=== PATIENT | female | born 1965 | race Caucasian/White ===

== ENCOUNTER → 2024-10-30 19:39 | Emergency (ER) | payer BC, SELFPAY ==
[2024-10-30 19:42] VITALS: BP 146/94
[2024-10-30 20:34] LABS: Hematocrit 39.2 % (37.0-47.0); Hemoglobin 13.5 g/dL (12.0-16.0); Mean Corp Hgb Conc. 34.4 g/dL (33.0-37.0); Mean Corpuscular Volume 87.1 fL (81.0-99.0); Nucleated Red Blood Cells % 0 %; Platelet Count 304 10^3/uL (130-400); Red Cell Dist. Width 13.9 % (11.5-14.5)
[2024-10-30 20:38] VITALS: BMI 33.5
[2024-10-30 20:55] LABS: ALT (SGPT) 26 U/L (0-35); AST (SGOT) 28 U/L (14-36); Albumin 4.4 g/dl (3.5-5.0); Alkaline Phosphatase 118 U/L (38-126); Blood Urea Nitrogen 10 mg/dl (7-17); Calcium 9.0 mg/dl (8.4-10.2); Carbon Dioxide 27 mmol/L (22-30); Chloride 104 mmol/L (98-107); Estimated Creatinine Clearance 103 ml/min; Glucose 120 mg/dl (70-99); Potassium 3.8 mmol/L (3.5-5.1); Sodium 137 mmol/L (135-145); Total Protein 7.8 g/dl (6.3-8.2); eGFR > 60.00
[2024-10-30 21:05] VITALS: BP 133/73
[2024-10-30 21:07] LABS: Troponin I < 0.012 ng/ml
[2024-10-30] MEDS: ANTIVERT 50 MG PO (21:24)
[2024-10-30 21:41] LABS: COVID-19 Antigen Negative (Negative)
[2024-10-30 21:45] VITALS: BP 134/70
[2024-10-30 21:47] VITALS: BP 134/70
[2024-10-30 22:00] VITALS: BP 131/82
[2024-10-30] MEDS: ZITHROMAX 500 MG PO (23:34)
--- NOTE | 2024-10-31 00:30 | ED.GENMED ---
History of Present Illness
General
Chief Complaint: Breathing Problem
Source: patient
Exam Limitations: none
Time Seen by Provider: 10/30/24 20:40
Nursing documentation reviewed up to this point in time: agreed with
History of Present Illness
History of Present Illness:
Note:
CHIEF COMPLAINT(S)
Shortness of breath.
HISTORY OF PRESENT ILLNESS
The patient is a 59-year-old female with pmh of chronic sinusitis, benign vertigo, presenting to the emergency department with a chief complaint of shortness of breath and coughing. The patient reports that she began experiencing congestion on
and increased her allergy medication regimen, including taking pseudoephedrine. Her shortness of breath worsened significantly at approximately 5 a.m. today. She describes a cough, which produces phlegm, but denies any hemoptysis. A
breathing treatment was initiated at urgent care, which provided some relief, though it was not completed due to an electrocardiogram (EKG) being performed. The patient denies fever, chest pain, and recent long-distance travel. She reports sporadic
leg swelling related to humidity but denies redness or significant swelling consistent with deep vein thrombosis. The patient mentions a history of occasional shortness of breath when exercising, particularly in humid or cold weather, which she
attributes to the sensation of a tightening in her chest. She has an old inhaler which she has used infrequently for this. The patient describes her current chest discomfort over the past few days described as a raw feeling localized to the anterior
chest, exacerbated by deep inspiration but not radiating, and primarily occurring after coughing fits. The patient reports similar episodes in the past which resolved without intervention, usually managed with an inhaler.
ADDITIONAL HISTORY OBTAINED FROM SOURCES OTHER THAN THE PATIENT
The patients recently had a cold and similar symptoms
CHRONIC MEDICAL CONDITIONS SIGNIFICANTLY AFFECTING CARE
The patient will experience chronic nasal congestion and has a history of sinus surgery.
SOCIAL DETERMINANTS AFFECTING HEALTH
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
REVIEW OF SYSTEMS
- Respiratory: Shortness of breath, productive cough with phlegm, nasal congestion.
- Cardiovascular: No chest pain or palpitations.
- Musculoskeletal: Sporadic leg swelling (humidity-related).
- General: No fever or recent long-distance travel.
PHYSICAL EXAM
Nursing notes reviewed and vital signs reviewed.
General: Patient is well appearing and in no acute distress; non-toxic
Skin: Warm and dry, no rashes or lesions
Head: Normocephalic, atraumatic
Eyes: Sclera non-icteric. EOMs intact.
Mouth: Mild pharyngeal erythema noted, no post nasal drip, uvula midline
Cardiac: Tachycardia noted otherwsie regular rhythm, no murmurs
Peripheral Vascular: No lower extremity swelling or edema
Pulm: Increased respiratory rate otherwise respiratory effort, no wheezing, rales, or rhonchi
Neuro: CN II-XII intact, no focal neurologic deficits.
Psychiatric: Appropriate mood and affect.
PLAN
1. Initiate a computed tomography (CT) scan of the chest to evaluate for pulmonary embolism, bronchitis, and early pneumonia.
2. Continue respiratory treatments in the emergency department if tachycardia resolves.
3. Administer intravenous fluids.
4. Consider a course of corticosteroids if bronchitis is confirmed.
5. Consider discontinuing D-dimer testing due to anticipated CT scan results.
DIFFERENTIAL DIAGNOSIS
The Differential Diagnosis includes, in no particular order and is not limited to:
1. Acute bronchitis
2. Pulmonary embolism
3. Pneumonia
4. Asthma exacerbation
5. Chronic obstructive pulmonary disease (COPD) exacerbation
6. Allergic rhinitis-related cough
7. Sinusitis
8. Congestive heart failure
9. Interstitial lung disease
10. Gastroesophageal reflux disease (GERD) related cough
CHART REVIEW
-No prior ER physician documentation to review, no discharge summary
My independent review of the CBC indicates no leukocytosis.
My independent review of the troponin is undetectable.
My independent review of the BNP is normal.
My independent interpretation of the EKG is sinus tachycardia with a rate of 111 bpm and no ischemic changes.
My independent interpretation of the chest CT is negative for pulmonary embolism but shows mild bronchial wall thickening at the lung bases, consistent with acute bronchitis.
MDM/DISPOSITION
-Complexity of Data Reviewed: Chronic conditions affecting care include chronic sinusitis. The differential diagnosis includes acute bronchitis, pulmonary embolism, pneumonia, asthma exacerbation, chronic obstructive pulmonary disease (COPD)
exacerbation, allergic rhinitis-related cough, sinusitis, congestive heart failure, interstitial lung disease, and gastroesophageal reflux disease (GERD) related cough.
-Data:
Category 1
Reviewed patients blood work: no leukocytosis; normal troponin and BNP.
Independent interpretation of chest CT scan: negative for pulmonary embolism, mild bronchial wall thickening.
Independent interpretation of EKG: sinus tachycardia with a rate of 111 bpm, no ischemic changes.
Category 2
Reviewed information from urgent care, including nebulizer treatment administered for symptom relief.
-Risk:
Prescription medication was prescribed: azithromycin for suspected acute bronchitis.
Consideration of Admission/Observation: Escalation of care including admission/observation was considered given the complexity and risk of the patients presenting complaint, exam findings, and/or their underlying comorbidities. However, ultimately I
feel the patient is safe for outpatient management with close follow-up.Given the duration of symptoms and past positive response to azithromycin, this treatment was initiated. The patient was also provided with a refill for her inhaler and advised
to follow up with her primary care provider. Reasoning: Work-up reassuring, does not reveal any acute life/organ threatening processes, patients symptoms well controlled upon reevaluation, reexamination is reassuring, vitals are stable, patient
agreeable with discharge, reliable for follow-up.
Phy Exam
Physical Exam
Physical Exam:
see hpi
Scores
Heart Failure Risk
Heart Failure Risk Score: Not Applicable
History of Stroke or TIA: No
History of intubation for respiratory distress: No
Heart rate on ED arrival >/= 110: No
SaO2 <90% on arrival on room air: No
HR >/=110 during 3min walk test (or too ill to perform test): No
ECG has acute ischemic changes: No
Urea >/=12mmol/L (BUN 33.6mg/dL): No
Serum CO2>/=35mmol/L: No
Troponin I or T elevated to PA Level (0.4mg/dL): No
NT-proBNP >/=5,000ng/L (5,000pg/ml): No
HF Risk Score: 0
Admission Status: LOW RISK 2.8% Consider discharge to home with f/u visit to PCP/[facility]
Course
Orders/Labs/Results
Orders:
Orders
10/30/24 20:11
Electrocardiogram (*1) Urgent
Reason for Study: Other
Other Reason for Exam: Respiratory Distress
Cardiac Monitoring- Treatment ONCE
EKG- Treatment ONCE
IV Insert/Care/Rem.- Treatment PRN
CR Chest - 2 Views Urgent
Comment:
Reason For Exam: respiratory distress
O2 Therapy [RESP] Urgent
Titrate/Wean O2 to maintain O2 sat greater than (%): 93
Special Instructions: TO MAINTAIN CONTINUOUS O2 SATS >/= 93%
Pulse Ox/cont/shift [RESP] Urgent
Quantity: 1
Special Instructions: continuous pulse ox
10/30/24 20:25
Complete Blood Count/With Diff Urgent
Comprehensive Metabolic Panel Urgent
NT-proBNP Urgent
Troponin I Urgent
10/30/24 20:55
CT Chest PE Study Urgent
Comment:
Reason For Exam: shortness of breath, chest pain, tachy
10/30/24 21:03
COVID-19 Antigen Urgent
Source: Nasal Swab
10/30/24 21:20
Meclizine [Antivert] 50 mg PO NOW STA
10/30/24 23:19
Azithromycin [Zithromax] 500 mg PO NOW STA
Abnormal Lab Results
10/30/24
20:25
Absolute Neuts (auto) 7.8 H 10^3/uL
(1.4-6.5)
Absolute Lymphs (auto) 0.9 L 10^3/uL
(1.2-3.4)
Absolute Monos (auto) 0.9 H 10^3/uL
(0.1-0.6)
Neutrophils % 78.4 H %
(42.2-75.2)
Lymphocytes % 8.8 L %
(20.5-51.1)
Monocytes % 9.5 H %
(1.7-9.3)
Glucose 120 H mg/dl
(70-99)
10/30/24 20:25
10/30/24 20:25
Vital Signs
Initial and Last Documented VS:
Initial Vital Signs
Temp Pulse Resp BP Pulse Ox
99 F 116 16 146/94 97
10/30/24 19:42 10/30/24 19:42 10/30/24 19:42 10/30/24 19:42 10/30/24 19:42
Last Documented Vital Signs
Temp Pulse Resp BP Pulse Ox
99 F 98 21 131/82 92
10/30/24 19:42 10/30/24 22:30 10/30/24 22:30 10/30/24 22:00 10/31/24 00:30
*Pulse Oximetry
SaO2: 92
Oxygen Mode of Delivery: Room air
Patient hypoxic: no
*Critical Care Note
Total Time (30-74mins, 75-104mins- exclusive of procedures): Not Applicable
ED Attending Note
-
Portions of this chart may have been created with voice recognition software.� Occasional wrong word or��sound alike� substitutions may have occurred due to the inherent limitations of voice recognition software.
Discharge Plan
Departure
Patient Disposition: Home (Routine Discharge)
Date of Disposition: 10/30/24
Time of Disposition: 23:24
Patient with high blood pressure during this ER visit?: Yes
Condition: Good
Discharge Problem:
Acute bronchitis, Shortness of breath
Instructions: Acute Bronchitis, Adult (DC), Shortness of Breath (Dyspnea) (DC), BLOOD PRESSURE
Prescriptions:
New
azithromycin [Zithromax] 250 mg tablet
250 mg PO DAILY 5 Days Qty: 6 0RF
albuterol sulfate [Ventolin HFA] 90 mcg/actuation HFA aerosol inhaler
3 inh inhalation Q4H PRN (Reason: shortness of breath or wheezing) Qty: 6.7 0RF
No Action
meclizine 50 mg Tablet
50 mg PO DAILY PRN (Reason: vertigo)
Referrals:
Dianna Lang MD [Family Provider, Family Practice]
Activity Restrictions/Additional Instructions:
Please follow-up with your primary care provider in 1 week for reassessment. Received first dose of azithromycin today. Please subsequently take 1 tablet once daily for 5 additional days. You can also use your albuterol inhaler as needed.
PLEASE RETURN EMERGENCY DEPARTMENT SHOULD YOU DEVELOP AN ACUTE WORSENING OF YOUR SYMPTOMS, DIFFICULTY BREATHING, COUGHING UP OF BLOOD, CHEST PAIN, FEVERS OR CHILLS, DIZZINESS, LIGHTHEADEDNESS, OR ANY OTHER SIGNS OR SYMPTOMS WORRISOME TO YOU.
Interventions
Interventions:
*Risk Screen - Suicide Last Done: 10/30/24 19:44
*General Assessment Last Done: 10/30/24 20:40
*Neglect/Abuse Screening Last Done: 10/30/24 19:44
*ED- Fall Risk Assessment Last Done: 10/30/24 20:40
*ED COVID-19 Vaccine History Last Done: 10/30/24 20:40
ED- Cardiac Assessment Last Done: 10/30/24 20:40
ED- Pulmonary Assessment Last Done: 07/27/25 20:40
Discharge Date and Time
Print Language: YI
== END | disposition home or self-care (01) ==
LOC: EMR 19:39
PROVIDERS: EMERGENCY PHYSICIAN Emergency Medicine; FAMILY PHYSICIAN Family Medicine
DX: J20.9 Acute bronchitis, unspecified (principal); R06.02 Shortness of breath; M79.89 Other specified soft tissue disorders; Z11.52 Encounter for screening for COVID-19; R03.0 Elevated blood-pressure reading, without diagnosis of hypertension; J32.9 Chronic sinusitis, unspecified
CPT/HCPCS: 99285; 71046; 71275; 80053; 83880; 84484; 85025; 87811; 93005; Q9967